=== PATIENT | male | born 1960 | race Caucasian/White ===

== ENCOUNTER 2019-11-18 07:34 | Outpatient (CLI) | payer OTHER, SELFPAY ==
--- NOTE | ~2019-11-18 | CT_ITS ---
EXAMINATION: CT abdomen pelvis w con INDICATION: Umbilical abdominal pain TECHNIQUE: Computed tomographic images of the abdomen and pelvis were obtained after the administrati on of 100 cc of Omnipaque 350 intravenous contrast. The dose-length product (DLP) was 839.78 mGy-cm. Automated exposure control and iterative reconstruction technique were employed. COMPARISON: None available FINDINGS: Minimal dependent atelectasis is present in the lung bases. The heart size is normal. The g allbladder is surgically absent. The liver is diffusely low in attenuation when compared with the spl een, consistent with hepatic steatosis. The spleen, pancreas, and adrenal glands are normal. The kidn eys are unremarkable. There is a circumaortic left renal vein. No pathologically enlarged abdominal o r pelvic lymph nodes are identified. There is no free intraperitoneal gas or evidence of bowel obstru ction. There is a fat-containing umbilical hernia. Colonic diverticulosis is present without evidence of diverticulitis. There is circumferential thickening of the bladder wall. There is mild lumbar spo ndylosis. There is an 11 mm hemangioma of the L2 vertebral body. IMPRESSION: 1. Mild circumferential thickening of the bladder wall which could reflect cystitis or chronic outlet obstruction. 2. Small fat-containing umbilical hernia. Reviewed, dictated and finalized at location A. OR ANALYST IMPRESSION: 1. Mild circumferential thickening of the bladder wall which could reflect cyst itis or chronic outlet obstruction. 2. Small fat-containing umbilical hernia.
[2019-11-18 08:10] LABS: Blood Urea Nitrogen 14 mg/dL (8-26); Estimated Glomerular Filt Rate > 60
== END 2019-11-18 07:35 | disposition home or self-care (01) ==
PROVIDERS: Visit Provider Internal Medicine Gastroenterology
DX: R10.9 Unspecified abdominal pain (principal); R14.0 Abdominal distension (gaseous); K42.9 Umbilical hernia without obstruction or gangrene
CPT/HCPCS: 74177; Q9967